=== PATIENT | female | born 1975 | race Asian ===

== ENCOUNTER 2020-03-18 06:10 | Day surgery (SDC) | payer BC ==
[2020-03-14 10:20] LABS: HEMATOCRIT 40.4 % (36.0-47.0); MEAN CORPUSCULAR HGB CONC 34.7 g/dL (32.0-36.0); MEAN CORPUSCULAR VOLUME 78 fl (80-97); PLATELET COUNT 282 10^3/uL (150-450); RED BLOOD COUNT 5.19 10^6/uL (3.72-5.28); RED CELL DISTRIBUTION WIDTH 21.3 % (11.5-14.0); WHITE BLOOD COUNT 5.1 10^3/uL (4.0-10.5)
[2020-03-14 10:30] LABS: APPEARANCE,URINE CLOUDY; BILIRUBIN,URINE NEGATIVE (NEGATIVE); COLOR,URINE YELLOW; GLUCOSE, URINE NEGATIVE (NEGATIVE); KETONES,URINE NEGATIVE (NEGATIVE); LEUKOCYTE ESTERASE,URINE NEGATIVE (NEGATIVE); NITRITE,URINE NEGATIVE (NEGATIVE); PROTEIN,URINE 100 mg/dL (NEGATIVE); URINE SPECIFIC GRAVITY 1.017; UROBILINOGEN,URINE NEGATIVE mg/dL (<2.0)
--- NOTE | 2020-03-14 10:39 | RADIOLOGY REPORT (SQ) ---
EXAM DESCRIPTION: CHEST PA/LATERAL IMAGES COMPLETED DATE/TIME: 03/14/2020 10:26 am REASON FOR STUDY: PRE-OP COMPARISON: None. EXAM PARAMETERS: NUMBER OF VIEWS: two views TECHNIQUE: Digital Frontal and Lateral radiographic views of the chest acquired. RADIATION DOSE: NA LIMITATIONS: none FINDINGS: LUNGS AND PLEURA: No opacities, masses or pneumothorax. No pleural effusion. MEDIASTINUM AND HILAR STRUCTURES: No masses or contour abnormalities. HEART AND VASCULAR STRUCTURES: Heart normal size. No evidence for failure. BONES: No acute findings. HARDWARE: None in the chest. OTHER: No other significant finding. IMPRESSION: NO SIGNIFICANT RADIOGRAPHIC FINDING IN THE CHEST. TECHNICAL DOCUMENTATION: JOB ID: [id number] 2010 [employer]- All Rights Reserved Reading location - IP/workstation name: [email or web address]
[2020-03-14 10:45] LABS: ANION GAP 7 (5-19); BLOOD UREA NITROGEN 13 mg/dL (7-20); CALCIUM 9.3 mg/dL (8.4-10.2); CARBON DIOXIDE 27 mmol/L (22-30); CHLORIDE 103 mmol/L (98-107); GLUCOSE 148 mg/dL (75-110); POTASSIUM 4.1 mmol/L (3.6-5.0)
--- NOTE | 2020-03-15 14:17 | EKG REPORT ---
SEVERITY:- BORDERLINE ECG - SINUS BRADYCARDIA LVH BY VOLTAGE : Confirmed by: Stephen Beaulieu MD 15-Mar-2020 14:16:23
[~2020-03-18 06:10] MED LIST: CEFAZOLIN 1 GM/D5W RTU 1 GM/50 ML RTUPB IV ONE; CEFAZOLIN 1 GM/D5W RTU 1 GM/50 ML RTUPB IV PRN; LACTATED RINGERS 1000 ML IV PRN; LIDOCAINE 0.5% INJ-PF (5 MG/ML) 50 ML SDV SUBCUT PRN
[2020-03-18] MEDS ORDERED: ONDANSETRON HCL INJ/PF 4 MG/2 ML SDV ONE ×2 (06:27→08:30)
[2020-03-18] MEDS ORDERED: MIDAZOLAM 2 MG/2 ML INJ ONE ×2 (06:27→06:56)
[2020-03-18] MEDS ORDERED: FENTANYL CITRATE INJ/PF 100 MCG/2 ML AMPUL ONE ×2 (06:27→06:55)
[2020-03-18] MEDS ORDERED: PROPOFOL INJ 200 MG/20 ML VIAL IV ONE ×4 (06:28→08:26)
[2020-03-18] MEDS ORDERED: MEPERIDINE HCL/PF INJ 25 MG/1 ML DISP.SYRIN IV PRN (08:10)
[2020-03-18] MEDS ORDERED: DIPHENHYDRAMINE HCL 50 MG/ML VIAL IV PRN (08:10)
[2020-03-18] MEDS ORDERED: FENTANYL CITRATE INJ/PF 100 MCG/2 ML AMPUL IV PRN ×3 (08:10)
[2020-03-18] MEDS ORDERED: PROMETHAZINE HCL INJ 25 MG/1 ML VIAL IV PRN (08:10)
[2020-03-18] MEDS ORDERED: MORPHINE SULFATE 10 MG/ML INJ IV PRN (08:10)
[2020-03-18] MEDS ORDERED: PROPOFOL 0 MG/0 ML INFUS..BTL IV ONE (08:24)
[2020-03-18] MEDS ORDERED: KETOROLAC TROMETHAMINE 60 MG/2 ML SDV ONE (08:30)
--- NOTE | 2020-03-18 08:46 | Operative Report ---
Operative Report DATE OF SURGERY: 03/18/20 PREOPERATIVE DIAGNOSIS: Menorrhagia POSTOPERATIVE DIAGNOSIS: Endometrial hyperplasia OPERATION: Operative hysteroscopy with MyoSure SURGEON: LUZMARIA WILLIAM ANESTHESIA: LMAC TISSUE REMOVED OR ALTERED: Endometrial hyperplasia and polyp COMPLICATIONS: None ESTIMATED BLOOD LOSS: 50 mL's INTRAOPERATIVE FINDINGS: Hyperplastic endometrium PROCEDURE: The usual risk of bleeding infection anesthesia damage to other organs and tissues have been discussed the patient and understood. Patient was taken to the operating room examined under anesthesia start surgical timeout was performed and prepped and draped in the usual manner for operative hysteroscopy. Bladder was left and drained the cervix readily admitted an operative hysteroscope the above-noted findings were encountered and the MyoSure was deployed and removal of the majority the tissue encountered. No uterine perforation was noted. The distending fluid input and output was roughly equivalent with the remainder being accounted for in the drapes. Bleeding was nil at the completion of procedure. Instrument counts correct
[2020-03-18] MEDS ORDERED: PROMETHAZINE HCL INJ 25 MG/1 ML VIAL IM PRN (09:00)
[2020-03-18] MEDS ORDERED: MORPHINE INJ 4 MG DOSE (EDIT ROUTE) INJ PRN (09:00)
[2020-03-18] MEDS ORDERED: OXYCODONE-ACETAMINOPHEN 5-325 MG TABLET PO PRN (09:00)
[2020-03-18] MEDS ORDERED: OXYCODONE-ACETAMINOPHEN 5-325 MG TABLET ONE (09:25)
[2020-03-18] MEDS ORDERED: IBUPROFEN 800 MG TABLET ONE (09:36)
[2020-03-18 11:12] VITALS: BP 129/83
[2020-03-18] MEDS ORDERED: CEFAZOLIN 1 GM/D5W RTU 1 GM/50 ML RTUPB IV SCH (12:00)
[2020-03-18] MEDS ORDERED: IBUPROFEN 800 MG TABLET PO SCH (14:00)
== END 2020-03-18 10:40 | disposition home or self-care (01) ==
LOC: OROUT 06:10
PROVIDERS: ATTEND Specialist
DX: N92.0 Excessive and frequent menstruation with regular cycle (principal); N85.00 Endometrial hyperplasia, unspecified; I10 Essential (primary) hypertension; Z79.899 Other long term (current) drug therapy; Z79.82 Long term (current) use of aspirin; Z03.818 Encounter for observation for suspected exposure to other biological agents ruled out
CPT/HCPCS: 93005; 86900; 86901; 36415; 86850; 85027; 87635; 81025; 80048; 81001; 88305 ×2; 71046; 93010; 58558; J2250; J0690; J3010; J2704; C9803; 952; J1885; J2405

== ENCOUNTER 2020-04-24 11:15 | Emergency (ER) | payer BC ==
--- NOTE | 2020-04-24 11:48 | ER Document Report ---
ED Medical Screen (RME) - General Chief Complaint: Vaginal Bleeding Stated Complaint: PELVIC PAIN/VAGINAL BLEEDING Time Seen by Provider: 04/24/20 11:43 Primary Care Provider: LUZMARIA WILLIAM MD [Primary Care Provider] - Follow up as needed Mode of Arrival: Ambulatory Information source: Patient Notes: 44-year-old female patient presents emergency department with 12-day history of persistent vaginal bleeding. Patient reports she saw her [employer] 2 days ago, states that she continues to bleed heavy, she is passing clots and feels very weak and faint. Patient is alert, oriented, no acute distress noted. I have greeted and performed a rapid initial assessment of this patient. A comprehensive ED assessment and evaluation of the patient, analysis of test re sults and completion of the medical decision making process will be conducted by additional ED providers. I have specifically instructed the patient or family members with the patient to immediately return to any nursing staff should anything change in the patient's condition or with their chief complaint. - Related Data Allergies/Adverse Reactions: latex Allergy (Severe, Verified 03/18/20 06:34) RASH Home Medications: iron Past Medical History - Past Medical History Cardiac Medical History: Denies: Hx Coronary Artery Disease, Hx Heart Attack, Hx Hypertension Pulmonary Medical History: Denies: Hx Asthma, Hx Bronchitis, Hx COPD, Hx Pneumonia Neurological Medical History: Denies: Hx Cerebrovascular Accident, Hx Seizures Musculoskeltal Medical History: Denies Hx Arthritis - Immunizations Hx Diphtheria, Pertussis, Tetanus Vaccination: Yes Physical Exam - Vital signs Vitals: Temp Pulse Resp BP Pulse Ox 99.2 F 66 20 138/69 H 98 04/24/20 11:04/24/20 11:04/24/20 11:04/24/20 11:04/24/20 11:31 Course - Vital Signs Vital signs: Temp Pulse Resp BP Pulse Ox 99.2 F 66 20 138/69 H 98 04/24/20 11:31 04/24/20 11:31 04/24/20 11:04/24/20 11:31 04/24/20 11:31 Doctor's Discharge - Discharge Referrals: LUZMARIA WILLIAM MD [Primary Care Provider] - Follow up as needed
[2020-04-24 12:25] LABS: APPEARANCE,URINE CLOUDY; BILIRUBIN,URINE NEGATIVE (NEGATIVE); COLOR,URINE RED; GLUCOSE, URINE 50 mg/dL (NEGATIVE); KETONES,URINE NEGATIVE (NEGATIVE); LEUKOCYTE ESTERASE,URINE TRACE (NEGATIVE); NITRITE,URINE NEGATIVE (NEGATIVE); PROTEIN,URINE 100 mg/dL (NEGATIVE); URINE SPECIFIC GRAVITY 1.019; UROBILINOGEN,URINE NEGATIVE mg/dL (<2.0)
[2020-04-24 12:39] LABS: HEMATOCRIT 26.6 % (36.0-47.0); HEMOGLOBIN 9.1 g/dL (12.0-15.5); MEAN CORPUSCULAR HEMOGLOBIN 29.4 pg (27.0-33.4); MEAN CORPUSCULAR HGB CONC 34.3 g/dL (32.0-36.0); MEAN CORPUSCULAR VOLUME 86 fl (80-97); PLATELET COUNT 317 10^3/uL (150-450); RED BLOOD COUNT 3.11 10^6/uL (3.72-5.28); WHITE BLOOD COUNT 5.7 10^3/uL (4.0-10.5)
[2020-04-24 12:44] LABS: ALBUMIN 3.8 g/dL (3.5-5.0); ALKALINE PHOSPHATASE 49 U/L (38-126); ANION GAP 6 (5-19); ASPARTATE AMINO TRANSFERASE 19 U/L (14-36); BILIRUBIN,TOTAL 0.3 mg/dL (0.2-1.3); BLOOD UREA NITROGEN 11 mg/dL (7-20); CALCIUM 8.9 mg/dL (8.4-10.2); CARBON DIOXIDE 26 mmol/L (22-30); CHLORIDE 106 mmol/L (98-107); GLUCOSE 201 mg/dL (75-110); POTASSIUM 4.2 mmol/L (3.6-5.0); TOTAL PROTEIN 6.8 g/dL (6.3-8.2)
[2020-04-24 13:05] LABS: ABSOLUTE LYMPHOCYTES# (MANUAL) 1.7 10^3/uL (0.5-4.7); ABSOLUTE MONOCYTES # (MANUAL) 0.1 10^3/uL (0.1-1.4); BAND NEUTROPHILS % (MANUAL) 2 % (3-5); BASOPHILS % (MANUAL) 0 % (0-2); EOSINOPHILS % (MANUAL) 1 % (0-6); LYMPHOCYTES % (MANUAL) 29 % (13-45); MONOCYTES % (MANUAL) 2 % (3-13); SEGMENTED NEUTROPHILS % (MAN) 66 % (42-78); TOTAL CELLS COUNTED 100
[2020-04-24 13:06] LABS: ANISOCYTOSIS 2+; OVALOCYTES 1+; PLATELET COMMENT ADEQUATE; POLYCHROMASIA 1+
--- NOTE | 2020-04-24 13:45 | RADIOLOGY REPORT (SQ) ---
EXAM DESCRIPTION: U/S NON OB PEL TV W/DOPPLER IMAGES COMPLETED DATE/TIME: 04/24/2020 1:29 pm REASON FOR STUDY: vaginal bleeding COMPARISON: None. TECHNIQUE: Dynamic and static grayscale images acquired of the pelvis via transvaginal approach and recorded on PACS. Additional selected color Doppler and spectral images recorded. LIMITATIONS: None. FINDINGS: UTERUS: Contour normal. No mass. ENDOMETRIAL STRIPE: Heterogeneous and thickened. CERVIX: No nabothian cysts. RIGHT OVARY AND DOPPLER: Normal size. No worrisome masses. Normal arterial vascular flow without evid ence for torsion. LEFT OVARY AND DOPPLER: Not seen. FREE FLUID: None noted. OTHER: No other significant finding. MEASUREMENTS: UTERUS: 10 x 5.8 x 7.1 cm ENDOMETRIAL STRIPE: 2 cm RIGHT OVARY: 2.4 x 2.1 x 2.5 cm LEFT OVARY: Not seen IMPRESSION: 1. Heterogeneous thickened endometrium, even for a patient of this age. No discrete mass or IUP iden tified. TECHNICAL DOCUMENTATION: JOB ID: [id number] 2010 [employer]- All Rights Reserved Rev Reading location - IP/workstation name: [email or web address]
--- NOTE | 2020-04-24 14:19 | ER Document Report ---
ED GI/ - General Chief Complaint: Vaginal Bleeding Stated Complaint: PELVIC PAIN/VAGINAL BLEEDING Time Seen by Provider: 04/24/20 11:43 Primary Care Provider: LUZMARIA LOVE MD [EMERITUS] - Follow up tomorrow Mode of Arrival: Ambulatory Notes: Patient is a 44-year-old female who presents to the emergency department with a chief complaint of vaginal bleeding. Patient states that her vaginal bleeding started 12 days ago. About a month ago, she had her fibroids. By Dr. Love. Patient states that last night the pain got worse. States that she is passing large clots. She also states that she has back pain that feels like contractions. - Related Data Allergies/Adverse Reactions: latex Allergy (Severe, Verified 03/18/20 06:34) RASH Home Medications: iron Past Medical History - General Information source: Patient - Social History Smoking Status: Unknown if Ever Smoked Family History: Reviewed & Not Pertinent - Past Medical History Cardiac Medical History: Denies: Hx Coronary Artery Disease, Hx Heart Attack, Hx Hypertension Pulmonary Medical History: Denies: Hx Asthma, Hx Bronchitis, Hx COPD, Hx Pneumonia Neurological Medical History: Denies: Hx Cerebrovascular Accident, Hx Seizures Musculoskeletal Medical History: Denies Hx Arthritis - Immunizations Hx Diphtheria, Pertussis, Tetanus Vaccination: Yes Review of Systems - Review of Systems Notes: REVIEW OF SYSTEMS: CONSTITUTIONAL : Denies recent illness. Denies recent unintentional weight loss. Denies fever, chills, or sweats. EENT: Denies eye, ear, throat, or mouth pain, discharge, or symptoms. Denies nasal or sinus congestion. CARDIOVASCULAR: Denies chest pain. RESPIRATORY: Denies shortness of breath, cough, congestion, difficulty breathing, or wheezing. GASTROINTESTINAL: See HPI. GENITOURINARY: Denies difficulty urinating, burning, blood in urine, urgency or frequency. FEMALE GENITOURINARY: See HPI. MUSCULOSKELETAL: Denies neck and back pain. Denies joint pain or swelling. SKIN: Denies rash, itchiness, or lesions HEMATOLOGIC : Denies easy bruising or bleeding. LYMPHATIC: Denies swollen, painful, enlarged glands. NEUROLOGICAL: Denies no numbness or tingling denies weakness. Denies headache. Denies altered mental status. Denies alteration in speech. PSYCHIATRIC: Denies stress, anxiety, alteration in sleep patterns, or depression. All other systems reviewed and negative. Physical Exam - Vital signs Vitals: Temp Pulse Resp BP Pulse Ox 99.2 F 66 20 138/69 H 98 04/24/20 11:31 04/24/20 11:31 04/24/20 11:31 04/24/20 11:31 04/24/20 11:31 - Notes Notes: PHYSICAL EXAMINATION: GENERAL: Appears well, healthy, well-nourished, no acute distress. HEAD: Normocephalic, atraumatic. EYES: PERRL, conjunctiva normal, all extraocular movements intact, sclera nonicteric ENT: Moist mucous membranes. NECK: Supple, no noticeable swelling, redness, rash. Normal range of motion. LUNGS: Equal breath sounds bilaterally and clear to auscultation. No wheezes rales or rhonchi. CARDIOVASCULAR: S1-S2, regular rate, regular rhythm. Radial pulses 2+, normal. ABDOMEN: Normoactive bowel sounds. Soft, nontender, no guarding, no rebound tenderness, and no masses palpated. EXTREMITIES: Normal strength and range of motion, no pitting or edema. No cyanosis. NEUROLOGICAL: Moves all extremities upon command. Strength 5/5 in all extremities. PSYCH: Normal mood, normal affect. SKIN: Warm, dry. No rash, lesions, ulcerations noted. Normal skin turgor. DI[employer]: Small amount of vaginal bleeding noted. No large clots noted. Course - Re-evaluation Re-evalutation: 04/24/20 15:11 Pelvic exam done with SARA Anglin at bedside. Small amount of bleeding noted. Wet mount and gonorrhea and Chlamydia sent. 04/24/20 16:11 Patient's hemoglobin is 9.1. This is a significant drop from her previous visit a little over a month ago. Chemistries are unremarkable other than a glucose of 201. Wet mount is unremarkable. Gonorrhea and Chlamydia were sent. Patient has no concern for gonorrhea met or chlamydia infection. Exam is not consistent with appendicitis, ischemic bowel, or any life-threatening etiology at this time. Patient will follow-up with Dr. Love tomorrow morning. I called Dr. Love and this is what we discussed. She is in agreement with this plan. Follow-up precautions were given. Verbal discharge instructions were given to the patient. They verbalized understanding. They are stable for discharge. - Vital Signs Vital signs: Temp Pulse Resp BP Pulse Ox 99.2 F 72 18 134/70 H 100 04/24/20 11:31 04/24/20 16:30 04/24/20 16:30 04/24/20 16:30 04/24/20 16:30 - Laboratory Result Diagrams: 04/24/20 11:56 04/24/20 11:56 Laboratory results interpreted by me: 04/24/20 04/24/20 04/24/20 11:56 11:56 11:56 RBC 3.11 L Hgb 9.1 L Hct 26.6 L RDW 18.0 H Band Neutrophils % 2 L Monocytes % (Manual) 2 L Glucose 201 H Urine Protein 100 H Urine Glucose (UA) 50 H Urine Blood LARGE H Ur Leukocyte Esterase TRACE H Discharge - Discharge Clinical Impression: Vaginal bleeding Condition: Stable Disposition: HOME, SELF-CARE Additional Instructions: You were seen today in the emergency department for vaginal bleeding. Your ultrasound appeared normal. Please follow-up with Dr. Love tomorrow morning. Please call the office at 9:00 in the morning to develop a plan of care with him in the office. You can take ibuprofen 600 mg every 6 hours as needed for your pain. Do not place anything in your vagina. Only use pads to help with the bleeding. Referrals: LUZMARIA LOVE MD [EMERITUS] - Follow up tomorrow
[2020-04-24 15:15] LABS: RBCS (WET MOUNT) RARE RBCS SEEN; T.VAGINALIS (WET MOUNT) NO TRICHOMONAS SEEN; WBCS (WET MOUNT) FEW WBCS SEEN; YEAST (WET MOUNT) NO YEAST SEEN
[2020-04-24 16:45] LABS: CHLAM PCR NOT DETECTED (NOT DETECT)
[2020-04-24 17:00] VITALS: BP 134/70
== END 2020-04-24 16:30 | disposition home or self-care (01) ==
LOC: ER 11:15
DX: N93.9 Abnormal uterine and vaginal bleeding, unspecified (principal); R93.89 Abnormal findings on diagnostic imaging of other specified body structures; M54.9 Dorsalgia, unspecified; Z79.899 Other long term (current) drug therapy; Z91.040 Latex allergy status
CPT/HCPCS: 36415; 76830; 80053; 81001; 85025; 86850; 86900; 86901; 87210; 87491; 87591; 93976; 99284

== ENCOUNTER 2020-04-29 06:06 | Day surgery (SDC) | payer BC ==
[2020-04-26 10:45] LABS: HEMOGLOBIN 8.9 g/dL (12.0-15.5); MEAN CORPUSCULAR HEMOGLOBIN 29.8 pg (27.0-33.4); MEAN CORPUSCULAR HGB CONC 34.2 g/dL (32.0-36.0); MEAN CORPUSCULAR VOLUME 87 fl (80-97); PLATELET COUNT 308 10^3/uL (150-450); RED BLOOD COUNT 2.98 10^6/uL (3.72-5.28); RED CELL DISTRIBUTION WIDTH 19.6 % (11.5-14.0); WHITE BLOOD COUNT 4.5 10^3/uL (4.0-10.5)
[2020-04-26 11:16] LABS: ANION GAP 11 (5-19); BLOOD UREA NITROGEN 17 mg/dL (7-20); CARBON DIOXIDE 23 mmol/L (22-30); CHLORIDE 105 mmol/L (98-107); GLUCOSE 197 mg/dL (75-110); POTASSIUM 4.7 mmol/L (3.6-5.0)
[2020-04-26 11:25] LABS: BILIRUBIN,URINE NEGATIVE (NEGATIVE); GLUCOSE, URINE NEGATIVE (NEGATIVE); KETONES,URINE NEGATIVE (NEGATIVE); LEUKOCYTE ESTERASE,URINE NEGATIVE (NEGATIVE); NITRITE,URINE NEGATIVE (NEGATIVE); PROTEIN,URINE NEGATIVE (NEGATIVE); URINE SPECIFIC GRAVITY 1.018; UROBILINOGEN,URINE NEGATIVE mg/dL (<2.0)
[2020-04-26 11:26] LABS: APPEARANCE,URINE TURBID; COLOR,URINE RED
[~2020-04-29 06:06] MED LIST changes: -CEFAZOLIN 1 GM/D5W RTU 1 GM/50 ML RTUPB IV ONE
[2020-04-29] MEDS ORDERED: CEFAZOLIN 1 GM/D5W RTU 1 GM/50 ML RTUPB IV ONE (06:09)
[2020-04-29] MEDS ORDERED: FENTANYL CITRATE INJ/PF 100 MCG/2 ML AMPUL ONE ×2 (08:14→09:33)
[2020-04-29] MEDS ORDERED: LIDOCAINE 1% INJ-PF (10 MG/ML) 30 ML SDV ONE (08:14)
[2020-04-29] MEDS ORDERED: MIDAZOLAM 2 MG/2 ML INJ ONE (08:14)
[2020-04-29] MEDS ORDERED: ONDANSETRON HCL INJ/PF 4 MG/2 ML SDV ONE ×2 (08:15→12:02)
[2020-04-29] MEDS ORDERED: PROPOFOL INJ 200 MG/20 ML VIAL IV ONE (08:15)
[2020-04-29] MEDS ORDERED: FENTANYL CITRATE INJ/PF 100 MCG/2 ML AMPUL IV PRN ×2 (08:36)
[2020-04-29] MEDS ORDERED: MORPHINE SULFATE 10 MG/ML INJ IV PRN (08:36)
[2020-04-29] MEDS ORDERED: PROMETHAZINE HCL INJ 25 MG/1 ML VIAL IV PRN (08:36)
[2020-04-29] MEDS ORDERED: DIPHENHYDRAMINE HCL 50 MG/ML VIAL IV PRN (08:36)
[2020-04-29] MEDS ORDERED: MEPERIDINE HCL/PF INJ 25 MG/1 ML DISP.SYRIN IV PRN (08:36)
--- NOTE | 2020-04-29 09:09 | Operative Report ---
Operative Report DATE OF SURGERY: 04/29/20 PREOPERATIVE DIAGNOSIS: Menorrhagia POSTOPERATIVE DIAGNOSIS: Same plus uterine leiomyoma OPERATION: Hysteroscopy, hysteroscopic removal of myoma plus NovaSure ablation SURGEON: LUZMARIA WILLIAM ANESTHESIA: LMAC TISSUE REMOVED OR ALTERED: Uterine leiomyoma COMPLICATIONS: None ESTIMATED BLOOD LOSS: 25 mL's INTRAOPERATIVE FINDINGS: Small sub-1 cm fundal uterine leiomyoma normal endometrial cavity PROCEDURE: The patient was given options of surgery include hysterectomy usual risk of bleeding infection anesthesia damage to other organs and tissues as discussed the patient understood. After surgical timeout patient is placed in dorsolithotomy position and after adequate anesthesia was ascertained prepped usual manner for a hysteroscopy. Paracervical block was instituted with 8 mL's of 1% plain lidocaine and hysteroscopy ensued. Blood notifies appreciated and has elected to due to the small nature of the fibroid present to proceed with a NovaSure ablation. Uterine measurements were taken which included a length of 6.0 cm and a width of 4.6 cm 151 seconds a power was used for a minute 7 seconds. Good ablation was noted and was elected to proceed to simply manually removed the fibroid which was done with ring forceps under direct observation of the hysteroscope. Re- hysteroscopy demonstrated good uterine integrity and good removal of the lesion proper. The completion of procedure all sponge needle needle instrument counts correct
[2020-04-29] MEDS ORDERED: OXYCODONE-ACETAMINOPHEN 5-325 MG TABLET PO PRN (09:33)
[2020-04-29] MEDS ORDERED: MORPHINE SULFATE 10 MG/ML INJ INJ PRN (09:33)
[2020-04-29] MEDS ORDERED: PROMETHAZINE HCL INJ 25 MG/1 ML VIAL IM PRN (09:34)
[2020-04-29] MEDS: FENTANYL CITRATE INJ/PF 100 MCG/2 ML AMPUL IV PRN ×2 (09:34→09:40)
[2020-04-29] MEDS ORDERED: IBUPROFEN 800 MG TABLET PO SCH (10:00)
[2020-04-29] MEDS ORDERED: OXYCODONE-ACETAMINOPHEN 5-325 MG TABLET ONE ×2 (10:10→12:38)
[2020-04-29] MEDS ORDERED: IBUPROFEN 800 MG TABLET ONE (11:32)
[2020-04-29] MEDS ORDERED: ONDANSETRON HCL INJ/PF 4 MG/2 ML SDV IV ONE (12:45)
[2020-04-29 13:49] VITALS: BP 140/79
--- NOTE | 2020-05-23 07:54 | PDOC DISCHARGE SUMMARY ---
Impression - Admit/DC Date/PCP Admission Date/Primary Care Provider: LUZMARIA WILLIAM MD Discharge Date: 05/02/20 - Additional Information Resuscitation Status: Full Code Discharge Diet: As Tolerated Discharge Activity: Balance Activity w/Rest, Pelvic Rest, No tub bath Referrals: LUZMARIA WILLIAM MD [Primary Care Provider] - History of Present Illiness History of Present Illness: YARY JIMENES is a 44 year old female Physical Exam - Physical Exam Vital Signs: Temp Pulse Resp BP Pulse Ox 98.4 F 52 L 15 140/79 H 100 04/29/20 13:20 04/29/20 13:20 04/29/20 13:20 04/29/20 13:20 04/29/20 13:20 Results Laboratory Results: WBC 4.5 10^3/uL (4.0-10.5) 04/26/20 09:31 RBC 2.98 10^6/uL (3.72-5.28) L 04/26/20 09:31 Hgb 8.9 g/dL (12.0-15.5) L 04/26/20 09:31 Hct 26.0 % (36.0-47.0) L 04/26/20 09:31 MCV 87 fl (80-97) 04/26/20 09:31 MCH 29.8 pg (27.0-33.4) 04/26/20 09:31 MCHC 34.2 g/dL (32.0-36.0) 04/26/20 09:31 RDW 19.6 % (11.5-14.0) H 04/26/20 09:31 Plt Count 308 10^3/uL (150-450) 04/26/20 09:31 Sodium 138.5 mmol/L (137-145) 04/26/20 09:31 Potassium 4.7 mmol/L (3.6-5.0) 04/26/20 09:31 Chloride 105 mmol/L (98-107) 04/26/20 09:31 Carbon Dioxide 23 mmol/L (22-30) 04/26/20 09:31 Anion Gap 11 (5-19) 04/26/20 09:31 BUN 17 mg/dL (7-20) 04/26/20 09:31 Creatinine 0.75 mg/dL (0.52-1.25) 04/26/20 09:31 Est GFR ( Amer) > 60 (>60) 04/26/20 09:31 Est GFR (MDRD) Non-Af > 60 (>60) 04/26/20 09:31 Glucose 197 mg/dL (75-110) H 04/26/20 09:31 Hemoglobin A1c % 5.4 % (4.7-6.0) 04/26/20 09:31 Calcium 9.0 mg/dL (8.4-10.2) 04/26/20 09:31 TSH 0.82 uIU/mL (0.47-4.68) 04/26/20 09:31 Urine Color RED 04/26/20 09:45 Urine Appearance TURBID 04/26/20 09:45 Urine pH 5.0 (5.0-9.0) 04/26/20 09:45 Ur Specific [place] 1.018 04/26/20 09:45 Urine Protein NEGATIVE mg/dL (NEGATIVE) 04/26/20 09:45 Urine Glucose (UA) NEGATIVE mg/dL (NEGATIVE) 04/26/20 09:45 Urine Ketones NEGATIVE mg/dL (NEGATIVE) 04/26/20 09:45 Urine Blood SMALL (NEGATIVE) H 04/26/20 09:45 Urine Nitrite NEGATIVE (NEGATIVE) 04/26/20 09:45 Urine Bilirubin NEGATIVE (NEGATIVE) 04/26/20 09:45 Urine Urobilinogen NEGATIVE mg/dL (<2.0) 04/26/20 09:45 Ur Leukocyte Esterase NEGATIVE (NEGATIVE) 04/26/20 09:45 Urine RBC (Auto) >182 /HPF 04/26/20 09:45 Urine Mucus (Auto) MANY /LPF 04/26/20 09:45 Urine Ascorbic Acid NEGATIVE (NEGATIVE) 04/26/20 09:45 Urine HCG, Qual NEGATIVE (NEGATIVE) 04/29/20 06:15 COVID-19 Source NASOPHARYNGEAL 04/26/20 09:25 COVID-19 ([facility]) NOT DETECTED 04/26/20 09:25 Blood Type B POSITIVE 04/26/20 09:31 Antibody Screen NEGATIVE 04/26/20 09:31 Stroke Is this a Stroke Patient?: No Acute Heart Failure Is this a Heart Failure Patient?: No
== END 2020-04-29 13:20 | disposition home or self-care (01) ==
LOC: OROUT 06:06
PROVIDERS: ATTEND Specialist
DX: N92.0 Excessive and frequent menstruation with regular cycle (principal); D25.0 Submucous leiomyoma of uterus; D50.9 Iron deficiency anemia, unspecified; Z03.818 Encounter for observation for suspected exposure to other biological agents ruled out; Z79.899 Other long term (current) drug therapy
CPT/HCPCS: 58563; 86900; 86901; 36415; 86850; 84443; 85027; 81025; 80048; 81001; 83036; 88305 ×2; 00952; U0003; J2250; J0690; J3010; J3490; J2405; J2704; C9803; 87635; 88307; 952